=== PATIENT | female | born 1965 | race Caucasian/White ===

== ENCOUNTER 2020-05-30 20:21 | Inpatient (IN) | payer OTHER, MEDICARE ==
[~2020-05-30] VITALS: Ht 165.1 cm; Wt 68.0 kg
[~2020-05-30 20:21] MED LIST: IBUPROFEN800 MG PO
[2020-05-30 20:51] LABS: HEMOGLOBIN 13.9 gm/dl (12.3-15.3); RED BLOOD COUNT 4.32 M/UL (4.00-5.10); WHITE BLOOD COUNT 21.8 K/UL (4.5-11.0)
[2020-05-30 21:08] LABS: BUN/CREATININE RATIO 20 (0-10)
[2020-05-31 04:40] LABS: HEMOGLOBIN 12.7 gm/dl (12.3-15.3); RED BLOOD COUNT 3.97 M/UL (4.00-5.10)
[2020-05-31 04:41] LABS: WHITE BLOOD COUNT 14.7 K/UL (4.5-11.0)
[2020-05-31 04:59] LABS: BUN/CREATININE RATIO 23 (0-10)
[2020-05-31] MEDS ORDERED: SUBOXONE 8 MG-1 EACH SL (12:24)
[2020-05-31] MEDS ORDERED: OMEPRAZOLE20 M2 PO (12:25)
[2020-05-31] MEDS ORDERED: PROVERA 2.5 MG2.5 MG PO (12:26)
[2020-05-31] MEDS ORDERED: ESTRACE1 MG PO (12:26)
[2020-06-01 12:25] LABS: HEMOGLOBIN 10.2 gm/dl (12.3-15.3); RED BLOOD COUNT 3.19 M/UL (4.00-5.10)
[2020-06-01 12:34] LABS: BUN/CREATININE RATIO 20 (0-10)
[2020-06-03 03:27] LABS: HEMOGLOBIN 9.3 gm/dl (12.3-15.3); RED BLOOD COUNT 2.93 M/UL (4.00-5.10); WHITE BLOOD COUNT 12.6 K/UL (4.5-11.0)
[2020-06-03 03:41] LABS: BUN/CREATININE RATIO 20 (0-10)
--- NOTE | 2020-06-03 14:49 | NUR ---
PT REFUSED TO HAVE FLU SHOT STATES LUNGS TOO BAD, SON-IN-LAW, OXYGEN TANK DELIVERED BY [facility]
[2020-06-04 04:22] LABS: HEMOGLOBIN 9.7 gm/dl (12.3-15.3); RED BLOOD COUNT 3.06 M/UL (4.00-5.10)
[2020-06-04 04:42] LABS: BUN/CREATININE RATIO 26 (0-10)
[2020-06-05 02:39] LABS: HEMOGLOBIN 10.2 gm/dl (12.3-15.3); RED BLOOD COUNT 3.19 M/UL (4.00-5.10); WHITE BLOOD COUNT 9.2 K/UL (4.5-11.0)
[2020-06-05 02:42] LABS: BUN/CREATININE RATIO 19 (0-10)
[2020-06-06 03:53] LABS: HEMOGLOBIN 10.3 gm/dl (12.3-15.3); RED BLOOD COUNT 3.22 M/UL (4.00-5.10); WHITE BLOOD COUNT 9.3 K/UL (4.5-11.0)
[2020-06-06 04:15] LABS: BUN/CREATININE RATIO 24 (0-10)
[2020-06-06] MEDS ORDERED: PERCOCET 5/325 T1 EA PO (10:31)
== END 2020-06-06 14:01 | disposition home or self-care (01) | DRG 957 ==
LOC: ER1 20:21 → CDU 05-31 00:26 → MED SURG 4 06-01 09:50 → CDU 06-01 09:50 → PROG CARE 06-01 11:43 → MED SURG 4 06-02 19:37
PROVIDERS: Emergency Medicine; Surgery; ADMIT Surgery
PROC: 0JB10ZZ Excision of Face Subcutaneous Tissue and Fascia, Open Approach (ICD-10-PCS; principal; 2020-05-31)
PROC: 0JB00ZZ Excision of Scalp Subcutaneous Tissue and Fascia, Open Approach (ICD-10-PCS; principal; 2020-05-31)
PROC: 0JQ10ZZ Repair Face Subcutaneous Tissue and Fascia, Open Approach (ICD-10-PCS; principal; 2020-05-31)
PROC: 0B9D8ZX Drainage of Right Middle Lung Lobe, Via Natural or Artificial Opening Endoscopic, Diagnostic (ICD-10-PCS; 2020-06-01)
DX: S01.81XA Laceration without foreign body of other part of head, initial encounter (principal); J15.6 Pneumonia due to other Gram-negative bacteria; S32.592A Other specified fracture of left pubis, initial encounter for closed fracture; S37.812A Contusion of adrenal gland, initial encounter; J18.9 Pneumonia, unspecified organism; V09.20XA Pedestrian injured in traffic accident involving unspecified motor vehicles, initial encounter; Y93.29 Activity, other involving ice and snow; Y92.410 Unspecified street and highway as the place of occurrence of the external cause; S30.0XXA Contusion of lower back and pelvis, initial encounter; S06.0X0A Concussion without loss of consciousness, initial encounter; Z20.822 Contact with and (suspected) exposure to COVID-19; F17.210 Nicotine dependence, cigarettes, uncomplicated; S80.211A Abrasion, right knee, initial encounter; I25.2 Old myocardial infarction; S82.402A Unspecified fracture of shaft of left fibula, initial encounter for closed fracture; S92.252A Displaced fracture of navicular [scaphoid] of left foot, initial encounter for closed fracture; B96.3 Hemophilus influenzae [H. influenzae] as the cause of diseases classified elsewhere
CPT/HCPCS: 12016; 36415; 36600; 51702; 70450; 71045; 71260; 72070; 72100; 72125; 73552; 73560; 73562; 73590; 73620; 73700; 80048; 80053; 82803; 83605; 85025; 85610; 85730; 86850; 86900; 86901; 87070; 87077; 87205; 90471; 90715; 94640; 94664; 94760; 96365; 96375; 96376; 97110-GP-CQ; 97116-GP-CQ; 97162; 99285; G0378; G0480; J0330; J0690; J0696; J1100; J2270; J2405; J2704; J3010; J7040; J7121; Q9967; U0002

== ENCOUNTER → 2020-06-29 | Outpatient (CLI) | payer MEDICARE, OTHER ==
[~2020-06-29] MED LIST changes: +ESTRACE1 MG PO; +OMEPRAZOLE20 M2 PO; +PERCOCET 5/325 T1 EA PO; +PROVERA 2.5 MG2.5 MG PO; +SUBOXONE 8 MG-1 EACH SL; +VISCOUS LIDOCAINE 2% PO
== END ==
LOC: KOH-I 11:51
DX: S92.902A Unspecified fracture of left foot, initial encounter for closed fracture (principal); S92.252A Displaced fracture of navicular [scaphoid] of left foot, initial encounter for closed fracture
CPT/HCPCS: 73630

== ENCOUNTER → 2020-07-27 | Outpatient (CLI) | payer MEDICARE, OTHER | LOC: KOH-I 13:24 | DX: M13.872 Other specified arthritis, left ankle and foot (principal) | CPT/HCPCS: 73630 ==

== ENCOUNTER → 2020-08-04 | Outpatient (CLI) | payer MEDICARE, OTHER | LOC: EXRD 13:30 | DX: I82.402 Acute embolism and thrombosis of unspecified deep veins of left lower extremity (principal); R60.9 Edema, unspecified; M79.662 Pain in left lower leg | CPT/HCPCS: 93971 ==

== ENCOUNTER 2020-10-03 13:58 | Emergency (ER) | payer MEDICARE, OTHER ==
[~2020-10-03 13:58] MED LIST changes: -VISCOUS LIDOCAINE 2% PO
[2020-10-03] MEDS ORDERED: VISCOUS LIDOCAINE 2% PO (14:37)
== END 2020-10-03 14:58 | disposition home or self-care (01) ==
LOC: ER1 13:58
DX: S01.511A Laceration without foreign body of lip, initial encounter (principal); F17.210 Nicotine dependence, cigarettes, uncomplicated; W22.8XXA Striking against or struck by other objects, initial encounter
CPT/HCPCS: 99283

== ENCOUNTER 2021-04-06 13:01 | Observation (INO) | payer MEDICARE, MEDICAID ==
[~2021-04-06] VITALS: Ht 165.1 cm; Wt 56.7 kg
[~2021-04-06 13:01] MED LIST changes: -OMEPRAZOLE20 M2 PO; +OMEPRAZOLE20 MG PO; +VISCOUS LIDOCAINE 2% PO
[2021-04-06 14:57] LABS: HEMOGLOBIN 14.8 gm/dl (12.3-15.3); RED BLOOD COUNT 4.5 M/UL (4.00-5.10); WHITE BLOOD COUNT 14.7 K/UL (4.5-11.0)
[2021-04-06 15:25] LABS: BUN/CREATININE RATIO 13 (0-10)
[2021-04-06] MEDS ORDERED: BUPROPION HCL150 M1 PO (18:18)
[2021-04-07] MEDS ORDERED: AUGMENTIN 875-1 EACH PO (11:20)
[2021-04-07] MEDS ORDERED: TORADOL 10 MG T10 MG PO (11:20)
== END 2021-04-07 15:45 | disposition home or self-care (01) ==
LOC: ER1 13:01 → CDU 17:18 → 3 EAST 17:18
PROVIDERS: Physician Assistant; ADMIT Surgery
DX: R10.11 Right upper quadrant pain (principal); R10.13 Epigastric pain; K82.8 Other specified diseases of gallbladder; F17.210 Nicotine dependence, cigarettes, uncomplicated; F19.10 Other psychoactive substance abuse, uncomplicated; Z79.899 Other long term (current) drug therapy; Z20.822 Contact with and (suspected) exposure to COVID-19
CPT/HCPCS: 76705; 80053; 81001; 83690; 85025; 87077; 87086; 87186; 99284; G0378; J2270; J2405; Q9967; U0002

== ENCOUNTER 2021-05-10 15:10 | Inpatient (IN) | payer MEDICARE ==
[~2021-05-10] VITALS: Ht 165.1 cm; Wt 56.7 kg
[~2021-05-10 15:10] MED LIST changes: +AUGMENTIN 875-1 EACH PO; +BUPROPION HCL150 M1 PO; +MEDROXYPROGEST2.5 MG PO; +TORADOL 10 MG T10 MG PO
[2021-05-10 16:32] LABS: HEMOGLOBIN 12.3 gm/dl (12.3-15.3); RED BLOOD COUNT 3.81 M/UL (4.00-5.10); WHITE BLOOD COUNT 15.5 K/UL (4.5-11.0)
[2021-05-10 18:10] LABS: BUN/CREATININE RATIO 21 (0-10)
[2021-05-11 04:13] LABS: HEMOGLOBIN 12.3 gm/dl (12.3-15.3); RED BLOOD COUNT 3.87 M/UL (4.00-5.10)
[2021-05-11 04:34] LABS: BUN/CREATININE RATIO 28 (0-10)
[2021-05-11] MEDS ORDERED: TYLENOL EXTRA500 MG PO (11:21)
--- NOTE | 2021-05-11 17:02 | NUR ---
05/12/21 1700 TOLERATED SOFT FOODS
--- NOTE | 2021-05-11 22:14 | NUR ---
CALLED REPORT TO [facility] AT APPROX. 2214. PT BEING TRANSFERRED TO ROOM 5104.
--- NOTE | 2021-05-11 22:35 | NUR ---
PT TRANSFERRED TO ROOM 5104. PT STABLE AT THE TIME OF TRANSFER.
[2021-05-12 10:01] LABS: HEMOGLOBIN 10.6 gm/dl (12.3-15.3)
[2021-05-12 10:05] LABS: RED BLOOD COUNT 3.38 M/UL (4.00-5.10); WHITE BLOOD COUNT 9.4 K/UL (4.5-11.0)
[2021-05-12 10:45] LABS: BUN/CREATININE RATIO 18 (0-10)
[2021-05-13 05:36] LABS: HEMOGLOBIN 10.1 gm/dl (12.3-15.3); RED BLOOD COUNT 3.15 M/UL (4.00-5.10); WHITE BLOOD COUNT 9.7 K/UL (4.5-11.0)
--- NOTE | 2021-05-13 05:43 | NUR ---
PT WAS EDUCATED FOR THE ENTIRE SHIFTS FROM 1830 05/11/21 TO 0700 05/12/21 AND 1830 05/12/21 TO 0544 05/13/21 THAT SHE WAS NOT TO EMPTY HER ALEXEY DRAIN ON HER ON VOLITION. SHE WAS INSTRUCTED TO CALL STAFF SO THAT IT CAN BE MEASURED AND EVALUATED. PT WAS NOT COMPLIANT WITH THESE INSTRUCTIONS AND EMPTIED THE DRAIN HERSELF TWO OR MORE TIMES EACH SHIFT. WCTM AND WILL CONTINUE TO EDUCATE PT.
[2021-05-13 06:10] LABS: BUN/CREATININE RATIO 19 (0-10)
--- NOTE | 2021-05-13 17:32 | NUR ---
PT CONTINUE TO COMPLAIN OF "BURNING" IN STOMACH. PT HAS REFUSED CLEAR LIQUIDS AND HAS ONLY DRANK PEPSI TODAY. ENCOURAGED PT TO REST HER STOMACH AND ONLY DO CLEAR LIQUIDS LIKE BROTH OR POPSICLES. RELUCTANT BUT AGREEABLE.
[2021-05-14 04:45] LABS: HEMOGLOBIN 9.6 gm/dl (12.3-15.3); RED BLOOD COUNT 3.15 M/UL (4.00-5.10); WHITE BLOOD COUNT 9.1 K/UL (4.5-11.0)
--- NOTE | 2021-05-14 05:06 | NUR ---
PT TOOK SHOWER AROUND 1999 ON 05/13/21. 4X4'S, ABD PAD, PAPER TAPE APLIED TO SITE OF ALEXEY DRAIN. AROUND 2299 ON 05/13/21, PT CALLED OUT TO STATE THAT DRESSING TO ALEXEY DRAIN WAS SATURATED, WELL A WASH CLOTH SHE WAS USING TO APPLY PRESSURE AND MANAGE EXCESS DRAINAGE. DRESSING WAS SATURATED WITH YELLOW [id number] LIQUID THAT WAS ALSO SAME ALEXEY TUBE DRAINAGE. DRESSING WAS CHANGED AND 4X4'S, ABD, PAPER TAPE RE-APPLIED TO MANAGE DRAINAGE. AT 0400 DRESSING WAS CLEAN, DRY, AND INTACT WITH NO SEAPAGE OR DRAINAGE NOTED AT THE TIME OF ASSESSMENT. TM
[2021-05-14 05:08] LABS: BUN/CREATININE RATIO 15 (0-10)
[2021-05-14] MEDS ORDERED: IBUPROFEN800 MG PO (09:13)
== END 2021-05-14 12:25 | disposition home or self-care (01) | DRG 394 ==
LOC: ER1 15:10 → CDU 19:49 → 3 EAST 05-11 13:34 → M/S 05-11 22:37
PROVIDERS: Internal Medicine Gastroenterology; Physician Assistant Medical; ADMIT Surgery
PROC: BF131ZZ Fluoroscopy of Gallbladder and Bile Ducts using Low Osmolar Contrast (ICD-10-PCS; 2021-05-13)
PROC: 0FC98ZZ Extirpation of Matter from Common Bile Duct, Via Natural or Artificial Opening Endoscopic (ICD-10-PCS; 2021-05-13)
PROC: 0FC68ZZ Extirpation of Matter from Left Hepatic Duct, Via Natural or Artificial Opening Endoscopic (ICD-10-PCS; 2021-05-13)
PROC: 0FC78ZZ Extirpation of Matter from Common Hepatic Duct, Via Natural or Artificial Opening Endoscopic (ICD-10-PCS; 2021-05-13)
PROC: 0F798ZZ Dilation of Common Bile Duct, Via Natural or Artificial Opening Endoscopic (ICD-10-PCS; principal; 2021-05-13 09:47)
DX: K91.89 Other postprocedural complications and disorders of digestive system (principal); J98.11 Atelectasis; Z20.822 Contact with and (suspected) exposure to COVID-19; F19.10 Other psychoactive substance abuse, uncomplicated; F17.210 Nicotine dependence, cigarettes, uncomplicated; K82.8 Other specified diseases of gallbladder; Y83.8 Other surgical procedures as the cause of abnormal reaction of the patient, or of later complication, without mention of misadventure at the time of the procedure; Z90.49 Acquired absence of other specified parts of digestive tract
CPT/HCPCS: 36415; 36600; 71045; 72192; 74330; 78226; 80048; 80053; 82150; 82550; 82553; 82803; 83605; 83690; 83874; 84484; 85025; 85027; 85610; 85730; 93005; 94640; 94664; 94760; 96374; 96375; 96376; 99285; A9537; C1725; C1769; C2617; J0330; J1100; J1170; J1885; J2250; J2270; J2310; J2405; J2543; J2704; J3010; J7030; J7120; Q9967; U0002